=== PATIENT | male | born 1990 ===

== ENCOUNTER → 2022-01-23 12:38 | Outpatient (CLI) | payer BC, SELFPAY ==
--- NOTE | ~2022-01-23 | CT_ITS ---
EXAMINATION: CT abdomen pelvis w con DATE: 01/23/2022 13:22 INDICATION: Right lower quadrant abdominal pain. TECHNIQUE: Computed tomography (CT) of the abdomen and pelvis was performed with 100 mL Omnipaque 350 intravenous contrast. Automated exposure control and iterative reconstruction technique were employe d. The dose-length product was 478.34 mGy-cm. COMPARISON: None. FINDINGS: The visualized portions of the lung bases are clear without pneumonia or pleural effusion. The heart size is normal. No pericardial effusion. The liver, gallbladder, spleen, pancreas, adrenal glands, and kidneys are normal. There are no dilated loops of bowel. The appendix is normal. There ar e no pathologically enlarged lymph nodes. There is no free intraperitoneal fluid. There is mild lumba r spondylosis. IMPRESSION: 1. No etiology for the patient's symptoms. Reviewed, dictated and finalized at location [facility].
== END ==
DX: R10.9 Unspecified abdominal pain (principal)
CPT/HCPCS: 74177; Q9967

== ENCOUNTER 2024-08-27 14:18 | Outpatient (CLI) | payer BC, SELFPAY ==
--- NOTE | ~2024-08-27 | MR_ITS ---
MRI of the lumbar spine Clinical History: Radiculopathy Technique: Axial T2-weighted images, and sagittal T1-weighted, T2-weighted, and T2 fat-sat images wer e acquired. Findings: There is straightening of normal lumbar lordosis. No fractures or ulceration seen. No suspi cious bone marrow signal abnormality seen. At L1-L2, there is no disc bulge or herniation. There is mild facet hypertrophy. No spinal canal sten osis or neural foraminal narrowing. At L2-L3, there is minimal disc bulge and mild facet hypertrophy. No central canal stenosis. Possible minimal bilateral neural foraminal narrowing. At L3-L4, there is minimal disc bulge with mild to moderate facet arthropathy. No central canal steno sis. There is mild bilateral neural foraminal narrowing. At L4-L5, there is disc desiccation with diffuse disc bulge/protrusion. Mild facet arthropathy also c ontributes to severe spinal canal stenosis/thecal sac compression at this level. There is moderate to severe bilateral neural foraminal narrowing. At L5-S1, there is minimal disc bulge with mild to moderate facet arthropathy. No central canal steno sis or neural foraminal narrowing. Paravertebral soft tissues are unremarkable. Impression: Severe degenerative spondylitic changes at L4-L5, largely related to diffuse posterior disc protrusio n/bulge. Please see details above. Reviewed, dictated and finalized at [facility]. Impression: Severe degenerative spondylitic changes at L4-L5, largely related to diffuse po sterior disc protrusion/bulge. Please see details above.
== END 2024-08-27 14:19 | disposition home or self-care (01) ==
LOC: MICIMG 14:22
PROVIDERS: Visit Provider Anesthesiology
DX: M47.816 Spondylosis without myelopathy or radiculopathy, lumbar region (principal); M51.26 Other intervertebral disc displacement, lumbar region
CPT/HCPCS: 72148